=== PATIENT | female | born 1945 | race American Indian/Alaskan Native ===

== ENCOUNTER 2017-02-21 10:12 | Outpatient (CLI) | payer MEDICARE ==
--- NOTE | 2017-02-22 10:02 | Mammography Report ---
Bilateral digital screening mammogram with CAD. Comparison study is dated November 01, 2015. Findings: There are scattered fibroglandular densities. A biopsy clip is seen adjacent to a nodular density in the posterior right breast. The biopsy was reported as benign. No suspicious microcalcifications are seen. Several small cutaneous calcifications are noted in the right breast inferiorly. No new masses, distortion, or other suspicious findings are seen. Impression: Stable benign findings. BI-RADS code: 2. Recommendation: Annual screening.
== END 2017-02-21 10:13 | disposition home or self-care (01) ==
LOC: MAMMO 10:12
DX: Z12.31 Encounter for screening mammogram for malignant neoplasm of breast (principal)
CPT/HCPCS: 77067; G0202

== ENCOUNTER 2018-11-07 10:23 | Outpatient (CLI) | payer MEDICARE, OTHER ==
--- NOTE | 2018-11-07 12:49 | Mammography Report ---
Bilateral mammogram: Compared to 02/21/17. CAD study utilized. Findings: Predominance adipose tissue bilaterally. Benign density right and left breast. No microcalcifications. Normal axilla. Impression: Benign findings. Annual followup recommended. BI-RADS CATEGORY: 2 = Benign ACR BI-RADS MAMMOGRAPHIC CODES: 0 = Needs additional imaging evaluation; 1 = Negative; 2 = Benign; 3 = Probably benign; 4 = Suspicious; 5 = Malignant; 6 = Known biopsy-proven malignancy COMMENT: 1. Dense breast tissue, i.e., adenosis, fibrocystic changes, etc., may obscure an underlying neoplasm. 2. Approximately 10% of cancers are not detected with mammography. 3. A negative mammography report should not delay biopsy if a clinically suspicious mass is present.
== END 2018-11-07 10:24 | disposition home or self-care (01) ==
LOC: MAMMO 10:23
DX: Z12.31 Encounter for screening mammogram for malignant neoplasm of breast (principal)
CPT/HCPCS: 77067